=== PATIENT | female | born 1990 | race Hispanic/Latino ===

== ENCOUNTER 2019-04-15 08:58 | Emergency (ER) | payer MEDICAID ==
[2019-04-15 10:04] LABS: APPEARANCE,URINE CLOUDY (CLEAR); BILIRUBIN,URINE NEGATIVE (NEGATIVE); GLUCOSE, URINE (UA) NEGATIVE (NEGATIVE); KETONES,URINE NEGATIVE (NEGATIVE); LEUKOCYTE ESTERASE ,URINE LARGE (NEGATIVE); NITRATE,URINE NEGATIVE (NEGATIVE); OCCULT BLOOD,URINE LARGE (NEGATIVE); PROTEIN,URINE 100 mg/dL (NEGATIVE); UROBILINOGEN,URINE 0.2 mg/dL (0.2-1.0)
[2019-04-15 10:06] LABS: COLOR,URINE DARK YELLOW (YELLOW); HCG,QUAL RESULT NEGATIVE (NEGATIVE)
[2019-04-15 10:34] LABS: BACTERIA,URINE Moderate /HPF (None Seen); RBC,URINE TNTC /HPF (0-1); WBC,URINE TNTC /HPF (0-1)
[2019-04-15] MEDS ORDERED: CEFTRIAXONE SODIUM 1 GM ONE (10:52)
[2019-04-15] MEDS ORDERED: SODIUM CHLORIDE 0.9% 50 ML IV ONE (10:52)
[2019-04-15] MEDS ORDERED: KETOROLAC TROMETHAMINE 30MG/ML ONE (12:54)
[2019-04-15] MEDS ORDERED: DEXAMETHASONE SOD PHOSPHATE 10MG/ML 1ML VIAL ONE (12:54)
[2019-04-15] MEDS ORDERED: MORPHINE SULFATE 4 MG/1ML SYG ONE (13:49)
== END 2019-04-15 14:06 | disposition home or self-care (01) ==
LOC: EDH 08:58
DX: M54.41 Lumbago with sciatica, right side (principal); N39.0 Urinary tract infection, site not specified
CPT/HCPCS: 72100; 81001; 81025; 87088; 96374; 96375; 99285; J0696; J1100; J1885; J2270

== ENCOUNTER 2020-10-08 22:53 | Emergency (ER) | payer MEDICAID ==
[2020-10-08] MEDS ORDERED: ACETAMINOPHEN EXTRA STRENGTH 500 MG TABLET ONE (23:07)
[2020-10-08 23:26] LABS: BASOPHILS % (AUTO) 0.4 % (0.0-5.0); EOSINOPHILS % (AUTO) 0.8 % (0.0-8.0); HEMATOCRIT 34.4 % (36-48); LYMPHOCYTES % (AUTO) 19.9 % (21.0-51.0); MEAN CORPUSCULAR HEMOGLOBIN 30.1 pg (27.0-33.0); MEAN CORPUSCULAR HGB CONC 35.2 g/dL (32.0-36.0); MEAN CORPUSCULAR VOLUME 85.6 fL (79-99); MONOCYTES % (AUTO) 8.3 % (3.0-13.0); NEUTROPHILS % (AUTO) 70.3 % (40.0-77.0); PLATELET COUNT (AUTO) 227 K/uL (130-400); RED BLOOD CELL COUNT(AUTO) 4.02 MIL/uL (4.00-5.50); WHITE BLOOD COUNT (AUTO) 9.3 K/uL (4.8-10.8)
[2020-10-08 23:27] LABS: APPEARANCE,URINE Cloudy (CLEAR); BILIRUBIN,URINE Negative (NEGATIVE); COLOR,URINE Yellow (YELLOW); GLUCOSE, URINE (UA) Negative (NEGATIVE); KETONES,URINE Negative (NEGATIVE); LEUKOCYTE ESTERASE ,URINE Moderate (NEGATIVE); NITRATE,URINE Negative (NEGATIVE); OCCULT BLOOD,URINE Negative (NEGATIVE); PROTEIN,URINE Negative (NEGATIVE)
[2020-10-08 23:34] LABS: CREATININE 0.6 mg/dL (0.5-1.5)
[2020-10-08 23:51] LABS: BACTERIA,URINE Few /HPF (None Seen); RBC,URINE 0-1 /HPF (0-1); SQUAMOUS EPITHELIAL CELL,UR Many /HPF (0-2)
[2020-10-08 23:59] LABS: ALBUMIN 3.2 g/dL (3.5-5.0); BILIRUBIN,TOTAL 0.2 mg/dL (0.2-1.0); TOTAL PROTEIN, SERUM 7.7 g/dL (6.0-8.3)
== END 2020-10-09 00:48 | disposition home or self-care (01) ==
LOC: EDH 22:53
DX: O20.0 Threatened abortion (principal); Z3A.13 13 weeks gestation of pregnancy; Z88.6 Allergy status to analgesic agent; Z72.0 Tobacco use
CPT/HCPCS: 36415; 76801; 76805; 80053; 81001; 83690; 84702; 85025; 86900; 86901; 87088

== ENCOUNTER 2021-03-22 13:11 | Observation (INO) | payer MEDICAID ==
[~2021-03-22] VITALS: Ht 172.7 cm; Wt 165.6 kg
[2021-03-22 14:06] LABS: BASOPHILS % (AUTO) 0.3 % (0.0-5.0); EOSINOPHILS % (AUTO) 0.6 % (0.0-8.0); HEMATOCRIT 30.9 % (36-48); LYMPHOCYTES % (AUTO) 13.8 % (21.0-51.0); MEAN CORPUSCULAR HEMOGLOBIN 27.9 pg (27.0-33.0); MEAN CORPUSCULAR VOLUME 84.4 fL (79-99); MONOCYTES % (AUTO) 6.7 % (3.0-13.0); NEUTROPHILS % (AUTO) 77.9 % (40.0-77.0); PLATELET COUNT (AUTO) 236 K/uL (130-400); RED BLOOD CELL COUNT(AUTO) 3.66 MIL/uL (4.00-5.50); RED CELL DISTRIBUTION WIDTH 12.8 % (11.0-15.5)
[2021-03-22 14:19] LABS: APPEARANCE,URINE Cloudy (CLEAR); BILIRUBIN,URINE Negative (NEGATIVE); COLOR,URINE Yellow (YELLOW); GLUCOSE, URINE (UA) Negative (NEGATIVE); KETONES,URINE Negative (NEGATIVE); LEUKOCYTE ESTERASE ,URINE Trace (NEGATIVE); NITRATE,URINE Negative (NEGATIVE); OCCULT BLOOD,URINE Trace (NEGATIVE); PROTEIN,URINE Negative (NEGATIVE)
[2021-03-22 14:20] LABS: ALBUMIN 2.3 g/dL (3.5-5.0); BILIRUBIN,TOTAL 0.3 mg/dL (0.2-1.0); CREATININE 0.7 mg/dL (0.5-1.5); POTASSIUM 3.8 mmol/L (3.5-5.1); TOTAL PROTEIN, SERUM 6.9 g/dL (6.0-8.3); URIC ACID 3.8 mg/dL (2.6-7.2)
[2021-03-22 14:26] LABS: INR 0.96 (0.85-1.15); PROTHROMBIN TIME 10.5 SEC (9.6-11.6)
[2021-03-22 14:28] LABS: PARTIAL THROMBOPLASTIN TIME 24.3 SEC (26.3-35.5)
[2021-03-22 14:43] LABS: BACTERIA,URINE Few /HPF (None Seen); RBC,URINE 0-1 /HPF (0-1)
[2021-03-22 15:49] LABS: FIBRINOGEN > 450 mg/dL (180-350)
== END 2021-03-22 14:55 | disposition home or self-care (01) ==
LOC: LDH 13:11
PROVIDERS: ADMIT Specialist; ATTEND Specialist
DX: O26.893 Other specified pregnancy related conditions, third trimester (principal); R60.0 Localized edema; M79.89 Other specified soft tissue disorders; Z3A.37 37 weeks gestation of pregnancy
CPT/HCPCS: 36415; 59025; 76819; 80053; 81001; 84550; 85025; 85384; 85610; 85730; G0378; G0379

== ENCOUNTER 2021-03-27 13:20 | Inpatient (IN) | payer MEDICAID ==
[~2021-03-27] VITALS: Ht 172.7 cm; Wt 165.6 kg
[2021-03-27] MEDS ORDERED: LACTATED RINGERS 1000ML 1,000 ML IV PRN (14:30)
[2021-03-27 15:02] LABS: BASOPHILS % (AUTO) 0.4 % (0.0-5.0); EOSINOPHILS % (AUTO) 0.5 % (0.0-8.0); HEMATOCRIT 29.2 % (36-48); MEAN CORPUSCULAR HGB CONC 33.2 g/dL (32.0-36.0); MEAN CORPUSCULAR VOLUME 84.4 fL (79-99); MONOCYTES % (AUTO) 6.8 % (3.0-13.0); NEUTROPHILS % (AUTO) 78.8 % (40.0-77.0); PLATELET COUNT (AUTO) 229 K/uL (130-400); RED BLOOD CELL COUNT(AUTO) 3.46 MIL/uL (4.00-5.50); WHITE BLOOD COUNT (AUTO) 10.6 K/uL (4.8-10.8)
[2021-03-27 15:20] LABS: INR 0.95 (0.85-1.15); PROTHROMBIN TIME 10.4 SEC (9.6-11.6)
[2021-03-27 15:21] LABS: PARTIAL THROMBOPLASTIN TIME 24.4 SEC (26.3-35.5)
[2021-03-27 15:24] LABS: ALBUMIN 2.3 g/dL (3.5-5.0); BILIRUBIN,TOTAL 0.3 mg/dL (0.2-1.0); CREATININE 0.7 mg/dL (0.5-1.5); POTASSIUM 3.8 mmol/L (3.5-5.1); TOTAL PROTEIN, SERUM 6.7 g/dL (6.0-8.3); URIC ACID 4.6 mg/dL (2.6-7.2)
[2021-03-27] MEDS ORDERED: NALOXONE HCL 0.4 MG/1 ML ML IV PRN (16:00)
[2021-03-27] MEDS ORDERED: ROPIVACAINE 0.2% 100ML VIAL 100 ML EP SCH (16:00)
[2021-03-27] MEDS ORDERED: LACTATED RINGERS 500 ML 500 ML IV PRN (16:00)
[2021-03-27] MEDS ORDERED: EPHEDRINE SULFATE 50 MG/ML AMPULE IVP PRN (16:00)
[2021-03-27] MEDS ORDERED: MEPERIDINE-PF 50 MG/ML SYG IVP PRN (16:00)
[2021-03-27] MEDS ORDERED: PROMETHAZINE HCL 25 MG/ML 1ML AMPULE IM PRN (16:00)
[2021-03-27 16:09] LABS: APPEARANCE,URINE Clear (CLEAR); BILIRUBIN,URINE Negative (NEGATIVE); COLOR,URINE Yellow (YELLOW); GLUCOSE, URINE (UA) Negative (NEGATIVE); KETONES,URINE Negative (NEGATIVE); LEUKOCYTE ESTERASE ,URINE Trace (NEGATIVE); NITRATE,URINE Negative (NEGATIVE); OCCULT BLOOD,URINE Trace (NEGATIVE); PH,URINE 6.5 (5.0-8.0); PROTEIN,URINE Negative (NEGATIVE)
[2021-03-27 16:19] LABS: BACTERIA,URINE Few /HPF (None Seen)
[2021-03-27 16:20] LABS: SQUAMOUS EPITHELIAL CELL,UR Moderate /HPF (0-2)
[2021-03-27 16:21] LABS: MUCUS,URINE Few LPF (None Seen)
[2021-03-28] MEDS ORDERED: OXYTOCIN-LR 20 UNITS/1000 ML 1,000 ML IV SCH (05:00)
[2021-03-28] MEDS ORDERED: FENTANYL CITRATE PF 50 MCG/1 ML 2ML VIAL ONE ×3 (11:41→23:02)
[2021-03-28] MEDS ORDERED: CEFAZOLIN SODIUM 1 GM VIAL ONE (21:53)
[2021-03-28] MEDS ORDERED: LACTATED RINGERS 1000ML 1,000 ML IV SCH (22:00)
[2021-03-28] MEDS ORDERED: CEFAZOLIN SODIUM 1 GM VIAL IVP PRN (22:00)
[2021-03-28] MEDS ORDERED: LIDOCAINE 2%-EPI 1:200,000 20 ML VIAL IJ ONE (22:15)
[2021-03-28] MEDS ORDERED: CEFAZOLIN SODIUM 1 GM VIAL IVP ONE (22:35)
[2021-03-28] MEDS ORDERED: KETAMINE 50MG/ML SYRINGE 50 MG/ML DISP.SYRIN IV ONE (22:45)
[2021-03-28] MEDS ORDERED: ROCURONIUM 10MG/1ML SYR 10 MG/ML ML ONE (22:56)
[2021-03-28] MEDS ORDERED: OXYTOCIN 10 USP UNITS/ML ONE ×2 (23:00→23:06)
[2021-03-28] MEDS ORDERED: MIDAZOLAM HCL 1 MG/ML 2ML VIAL ONE (23:01)
[2021-03-28] MEDS ORDERED: ONDANSETRON 4MG INJ ONE (23:19)
[2021-03-28] MEDS ORDERED: MEPERIDINE-PF 50 MG/ML SYG ONE (23:27)
[2021-03-28] MEDS ORDERED: FENTANYL CITRATE PF 50 MCG/1 ML 5ML AMP IV ONE (23:29)
[2021-03-28] MEDS ORDERED: NEOSTIGMINE 5MG/5ML SYR IV ONE (23:30)
[2021-03-28] MEDS ORDERED: GLYCOPYRROLATE 1 MG/5 ML SYRINGE ONE (23:30)
[2021-03-29] VITALS (7 sets, daily range): BP systolic 105–139; BP diastolic 58–79
[2021-03-29] MEDS ORDERED: 0.9%NACL 10ML VIAL IVP PRN
[2021-03-29] MEDS ORDERED: OXYTOCIN-LR 20 UNITS/1000 ML 1,000 ML IV PRN
[2021-03-29] MEDS ORDERED: HYDROMORPHONE PCA 10 MG/50 ML 50 ML IV PRN
[2021-03-29] MEDS ORDERED: PROMETHAZINE HCL 25 MG/ML 1ML AMPULE IM PRN
[2021-03-29] MEDS ORDERED: MEPERIDINE-PF 75 MG/ML SYG IM PRN
[2021-03-29] MEDS ORDERED: FENTANYL CITRATE PF 50 MCG/1 ML 2ML VIAL ONE ×2 (00:07→00:25)
[2021-03-29] MEDS ORDERED: MEPERIDINE-PF 75 MG/ML SYG ONE (01:31)
[2021-03-29] MEDS ORDERED: PREN-18 PO (03:11)
[2021-03-29] MEDS: CEFAZOLIN 3GM /D5W 100ML 100 ML IV SCH ×2 (07:05→13:55)
[2021-03-29] MEDS: DEXTROSE 5 %-0.45 % NACL 1,000 ML IV PRN ×2 (07:09→12:47)
[2021-03-29 07:16] LABS: HEPATITIS Bs ANTIGEN SCREEN P Negative (Negative)
[2021-03-29 11:38] LABS: HEMATOCRIT 25.4 % (36-48); MEAN CORPUSCULAR HEMOGLOBIN 27.5 pg (27.0-33.0); MEAN CORPUSCULAR HGB CONC 32.3 g/dL (32.0-36.0); MEAN CORPUSCULAR VOLUME 85.2 fL (79-99); RED BLOOD CELL COUNT(AUTO) 2.98 MIL/uL (4.00-5.50); RED CELL DISTRIBUTION WIDTH 13.1 % (11.0-15.5); WHITE BLOOD COUNT (AUTO) 11.9 K/uL (4.8-10.8)
[2021-03-29] MEDS ORDERED: HYDROCODONE/ACETAMINOPHEN 5/325 MG TAB PO PRN (12:30)
[2021-03-29] MEDS ORDERED: BISACODYL 10 MG SUPP.RECT RC PRN (12:30)
[2021-03-29] MEDS ORDERED: ACETAMINOPHEN WITH CODEINE 1 TAB TAB PO PRN (12:30)
[2021-03-29] MEDS ORDERED: ACETAMINOPHEN 500 MG TABLET PO PRN (12:30)
[2021-03-29] MEDS ORDERED: MEASLES/MUMPS/RUBELLA VACCINE, LIVE 0.5 ML/VIAL SQ SCH (12:30)
[2021-03-29] MEDS ORDERED: LANOLIN 30GM OINTMENT TP PRN (12:30)
[2021-03-29] MEDS ORDERED: DIPH,PERTUSS(ACELL),TET VAC/PF 0.5 ML VIAL IM SCH (12:30)
[2021-03-29] MEDS ORDERED: IBUPROFEN 600 MG TABLET ONE (12:37)
[2021-03-29] MEDS ORDERED: DOCUSATE SODIUM 100 MG CAP PO ONE (12:37)
[2021-03-29] MEDS ORDERED: SIMETHICONE 80 MG TAB.CHEW ONE (12:37)
[2021-03-29] MEDS ORDERED: PHARMACY COMMUNICATION MISC SCH (13:00)
[2021-03-29] MEDS: SIMETHICONE 80 MG TAB.CHEW PO PRN ×2 (18:55→20:19)
[2021-03-29] MEDS: DOCUSATE SODIUM 100 MG CAP PO SCH (20:19)
[2021-03-30] MEDS: IBUPROFEN 600 MG TABLET PO PRN ×2 (03:04→09:28)
[2021-03-30 03:10] VITALS: BP 121/76
[2021-03-30 07:22] VITALS: BP 126/71
[2021-03-30] MEDS: DOCUSATE SODIUM 100 MG CAP PO SCH (09:27)
[2021-03-30] MEDS: SIMETHICONE 80 MG TAB.CHEW PO PRN (09:27)
[2021-03-30 11:48] VITALS: BP 124/86
== END 2021-03-30 13:35 | disposition home or self-care (01) | DRG 540 ==
LOC: OBSVTOIN 13:20 → LDH 13:20 → WSH 03-29 02:30
PROVIDERS: ADMIT Specialist; ATTEND Specialist
PROC: 3E0234Z Introduction of Serum, Toxoid and Vaccine into Muscle, Percutaneous Approach (ICD-10-PCS; 2021-03-28)
PROC: 3E0134Z Introduction of Serum, Toxoid and Vaccine into Subcutaneous Tissue, Percutaneous Approach (ICD-10-PCS; 2021-03-28)
PROC: 10D00Z1 Extraction of Products of Conception, Low, Open Approach (ICD-10-PCS; principal; 2021-03-28 22:30)
DX: O14.94 Unspecified pre-eclampsia, complicating childbirth (principal); E66.01 Morbid (severe) obesity due to excess calories; O62.2 Other uterine inertia; Z37.0 Single live birth; Z3A.38 38 weeks gestation of pregnancy; Z88.8 Allergy status to other drugs, medicaments and biological substances; Z23 Encounter for immunization; O99.214 Obesity complicating childbirth
CPT/HCPCS: 36415; 59510; 76805; 76819; 80053; 81001; 84550; 85025; 85027; 85384; 85610; 85730; 86592; 86850; 86900; 86901; 87340; 90707; 90715; A4314; G0378; J0690; J2175; J2250; J2405; J2550; J2590; J2710; J2795; J3010; J3490; J7120

== ENCOUNTER 2021-04-03 14:20 | Observation (INO) | payer MEDICAID ==
[~2021-04-03] VITALS: Ht 172.7 cm; Wt 161.9 kg
[~2021-04-03 14:20] MED LIST: PREN-18 PO
[2021-04-03 15:59] LABS: APPEARANCE,URINE Clear (CLEAR); BILIRUBIN,URINE Negative (NEGATIVE); COLOR,URINE Yellow (YELLOW); GLUCOSE, URINE (UA) Negative (NEGATIVE); KETONES,URINE Negative (NEGATIVE); LEUKOCYTE ESTERASE ,URINE Negative (NEGATIVE); NITRATE,URINE Negative (NEGATIVE); OCCULT BLOOD,URINE Negative (NEGATIVE); PH,URINE 7.5 (5.0-8.0); PROTEIN,URINE Negative (NEGATIVE)
[2021-04-03 16:05] LABS: BASOPHILS % (AUTO) 0.6 % (0.0-5.0); EOSINOPHILS % (AUTO) 3.5 % (0.0-8.0); HEMATOCRIT 23.6 % (36-48); LYMPHOCYTES % (AUTO) 15.4 % (21.0-51.0); MEAN CORPUSCULAR HEMOGLOBIN 27.6 pg (27.0-33.0); MEAN CORPUSCULAR HGB CONC 31.4 g/dL (32.0-36.0); MEAN CORPUSCULAR VOLUME 88.1 fL (79-99); MONOCYTES % (AUTO) 7.2 % (3.0-13.0); NEUTROPHILS % (AUTO) 72.7 % (40.0-77.0); PLATELET COUNT (AUTO) 294 K/uL (130-400); RED BLOOD CELL COUNT(AUTO) 2.68 MIL/uL (4.00-5.50); RED CELL DISTRIBUTION WIDTH 13.7 % (11.0-15.5); WHITE BLOOD COUNT (AUTO) 7.2 K/uL (4.8-10.8)
[2021-04-03 16:13] LABS: CREATININE 0.7 mg/dL (0.5-1.5); POTASSIUM 3.8 mmol/L (3.5-5.1)
[2021-04-03 16:15] LABS: INR 1.02 (0.85-1.15); PROTHROMBIN TIME 11.1 SEC (9.6-11.6)
[2021-04-03 16:16] LABS: PARTIAL THROMBOPLASTIN TIME 23.6 SEC (26.3-35.5)
[2021-04-03 16:18] LABS: ALBUMIN 2.2 g/dL (3.5-5.0); BILIRUBIN,TOTAL 0.3 mg/dL (0.2-1.0); TOTAL PROTEIN, SERUM 6.1 g/dL (6.0-8.3); URIC ACID 5.1 mg/dL (2.6-7.2)
== END 2021-04-03 17:45 | disposition home or self-care (01) ==
LOC: LDH 14:20
PROVIDERS: ADMIT Specialist; ATTEND Specialist
DX: O26.893 Other specified pregnancy related conditions, third trimester (principal); R03.0 Elevated blood-pressure reading, without diagnosis of hypertension; H53.8 Other visual disturbances; O99.213 Obesity complicating pregnancy, third trimester; E66.01 Morbid (severe) obesity due to excess calories; Z3A.39 39 weeks gestation of pregnancy; Z79.899 Other long term (current) drug therapy
CPT/HCPCS: 36415; 80053; 81003; 84550; 85025; 85384; 85610; 85730; G0378 ×3

== ENCOUNTER 2025-03-05 19:32 | Emergency (ER) | payer SELFPAY ==
[~2025-03-05] VITALS: Ht 172.7 cm; Wt 156.5 kg
--- NOTE | 2025-03-05 19:35 | NUR ---
UA CUP PROVIDED
--- NOTE | 2025-03-05 21:02 | ERN ---
ED Note History of Present Illness Stated Complaint: NUMBNESS BILATERAL LEGS Chief Complaint: Numbness Time Seen by MD: 19:53 Dictation: This is a 34-year-old extremely obese female who is over 400 lb came into the emergency room complaining of reduced feeling of the legs with a mild numbness. She was concerned as she was Googling that her potassium may be low as she has been on a Mediterranean diet to lose weight. She denied any blurred vision diplopia motor weakness or seizure activity. No facial asymmetry she recently saw her eye doctor and had her contacts and everything changed and there was and no issue with the vision. Patient denied any seizure activity weakness or tingling. She basically indicated that a few months ago her hemoglobin A1c was 6.3 and she weighed 408 lb when she began the diet and lost to 345 lb. She also reported that she had a fatty liver Temperature 98 pulse 83 respirations 18 blood pressure 163/88 with a pulse oximetry of 98% on room air Allergies: Coded Allergies: ketorolac (Unverified Allergy, Unknown, itching, 03/22/21) Home Meds Reported Medications Vit W-Ca,Fe,FA(<1 mg) ( Formula) 1 Each Tablet, 1 EACH PO AD, TAB 03/29/21 Past Medical History Past Medical History: Other Additional Past Medical Hx: FATTY LIVER Surgical History: Cholecystectomy, Family History: Negative Social History: Negative RN Note Reviewed/Agreed w/PFSH: Yes Review of System Dictation Constitutional: Negative for fever,chills, and weight loss Eyes: Negative for injury, pain,redness, and discharge ENT: Negative for injury,pain or swelling Cardiovascular: Negative for chest pain, palpitations, and edema Respiratory: Negative for shortness of breath, cough, and wheezing, Abdomen/GI: Negative for abdominal pain, nausea, vomiting, diarrhea, and constipation Back: Negative for injury and pain : Negative for injury, bleeding and discharge MS/Extremity: Negative for injury and deformity Skin: Negative for rash, and discoloration Neuro: Negative for headache, weakness, , tingling, and seizure positive for mild numbness of both lower extremities Psych: Negative for suicide ideation, homicidal ideation, and hallucinations Initial Vital Sign VS Vital Signs Date Time Temp Pulse Resp B/P (MAP) Pulse Ox O2 Delivery O2 Flow Rate FiO2 03/05/25 19:34 98.1 83 18 163/88 98 Room Air 03/05/25 19:45 0 21 Physical Exam Dictation General: awake, alert, NAD extremely obese Head/Face: Normocephalic, atraumatic Eyes: PERRL, EOMI, vision at baseline ENT: oral cavity clear, TMs clear, no signs of infection Neck: Trachea midline, supple, no nuchal rigidity Cardiovascular: RRR, normal S1/S2, No MRGs, no JVD Respiratory: CTAB, no respiratory distress, No rales or wheezes Abdomen: Soft, non-tender, non-distended, normal bowel sounds, no guarding or rebound. Skin: Warm, dry, normal turgor, no rash MS/Extremity: Pulses equal, no cyanosis, neurovascular intact, FROM Neuro: COAx4, GCS 15, strength 5/5, CN 2-12 intact, normal cerebellar exam, normal gait, patient is able to feel during sensory exam Psych: Normal behavior, mood, and affect normal Extremities-trace edema without any palpable cords, Homans sign is negative Results (Laboratory/Radiology) Laboratory/Radiology Laboratory Tests Test 03/05/25 19:40 03/05/25 21:17 Urine Color LIGHT-YELLOW (YELLOW) Urine Appearance CLEAR (CLEAR) Urine pH 5.5 (5.0-8.0) Urine Specific [place] 1.011 (1.001-1.031) Urine Protein NEGATIVE mg/dL (NEGATIVE) Urine Glucose (UA) NEGATIVE mg/dL (NEGATIVE) Urine Ketones 20 mg/dL (NEGATIVE) H Urine Occult Blood SMALL (NEGATIVE) H Urine Nitrate NEGATIVE (NEGATIVE) Urine Bilirubin NEGATIVE mg/dL (NEGATIVE) Urine Urobilinogen 0.2 mg/dL (0.2-1.0) Urine Leukocyte Esterase NEGATIVE Shonna/uL Urine RBC 2-5 /HPF (0-1) H Urine WBC 0-1 /HPF (0-1) Urine Squamous Epithelial Cells RARE /HPF (0-2) Urine Bacteria None /HPF (None Seen) Urine Opiates Screen NEGATIVE (NEGATIVE) Urine Barbiturates Screen NEGATIVE (NEGATIVE) Urine Phencyclidine Screen NEGATIVE (NEGATIVE) Urine Amphetamines Screen NEGATIVE (NEGATIVE) Urine Benzodiazepines Screen NEGATIVE (NEGATIVE) Urine Cocaine Screen NEGATIVE (NEGATIVE) Urine Marijuana (THC) Screen NEGATIVE (NEGATIVE) White Blood Count 6.4 K/uL (4.8-10.8) Red Blood Count 4.18 MIL/uL (4.00-5.50) Hemoglobin 10.9 g/dL (12.0-16.0) L Hematocrit 34.8 % (36-48) L Mean Corpuscular Volume 83.3 fL (79-99) Mean Corpuscular Hemoglobin 26.1 pg (27.0-33.0) L Mean Corpuscular Hemoglobin Concent 31.3 g/dL (32.0-36.0) L Red Cell Distribution Width 13.7 % (11.0-15.5) Platelet Count 288 K/uL (130-400) Mean Platelet Volume 11.8 fL (7.5-10.5) H Immature Granulocyte % (Auto) 0.3 % (0-1) Neutrophils (%) (Auto) 72.8 % (40.0-77.0) Lymphocytes (%) (Auto) 16.5 % (21.0-51.0) L Monocytes (%) (Auto) 9.0 % (3.0-13.0) Eosinophils (%) (Auto) 0.8 % (0.0-8.0) Basophils (%) (Auto) 0.6 % (0.0-5.0) Neutrophils # (Auto) 4.7 K/uL (1.8-7.7) Lymphocytes # (Auto) 1.1 K/uL (1.0-4.8) Monocytes # (Auto) 0.6 K/uL (0.1-1.0) Eosinophils # (Auto) 0.05 K/uL (0.00-0.70) Basophils # (Auto) 0.04 K/uL (0.00-0.20) Absolute Immature Granulocyte (auto 0.02 K/uL (0-1) Nucleated Red Blood Cells 0.0 % (0.0-0.19) Sodium Level 139 mmol/L (136-145) Potassium Level 3.9 mmol/L (3.5-5.1) Chloride Level 105 mmol/L (101-111) Carbon Dioxide Level 27 mmol/L (21-32) Blood Urea Nitrogen 10 mg/dL (7-18) Creatinine 0.8 mg/dL (0.5-1.0) Glomerular Filtration Rate Calc 100 mL/min (>90) Random Glucose 122 mg/dL (70-105) H Total Calcium 9.0 mg/dL (8.5-10.1) Magnesium Level 1.80 mg/dL (1.80-2.40) Thyroid Stimulating Hormone (TSH) 1.58 uIU/mL (0.36-3.74) Human Chorionic Gonadotropin, Quant 1 mIU/mL (0-5) Labs Reviewed?: Yes ED Course ED Course Orders Procedure Category Date Status Time Cbc With Differential LAB 03/05/25 Complete 20:59 Basic Metabolic Panel LAB 03/05/25 Complete 20:59 Hcg,Quantitative LAB 03/05/25 Complete 20:59 Magnesium LAB 03/05/25 Complete 20:59 Urinalysis Profile LAB 03/05/25 Complete 20:59 Thyroid Stimulating LAB 03/05/25 Complete Hormone 20:59 Drug Screen Urine LAB 03/05/25 Complete 21:01 Ct Lumbar Spine W/O CT 03/05/25 Resulted Contrast 21:44 Vital Signs Date Time Temp Pulse Resp B/P (MAP) Pulse Ox O2 Delivery O2 Flow Rate FiO2 03/05/25 22:53 98.1 83 18 163/88 98 Room Air* 0 21 03/05/25 19:45 98.1 83 18 163/88 98 Room Air* 0 21 03/05/25 19:34 98.1 83 18 163/88 98 Room Air We will perform diagnostic labs, advanced imaging and administer medications according to the patient's complaint. Once the results are available, will review and personally interpreted the labs to rule out any acute life-threateni ng emergency the trach require immediate intervention and treatment. I will then re-evaluate the patient after treatment and diagnostic exams have return to determine whether the patient requires any further testing, can safely be discharged home or need further admission to hospital for additional treatment and evaluation. Labs reviewed CBC shows a hemoglobin of 10.9 but otherwise with a normal limits BNP 7 is normal, urinalysis is unremarkable, urine drug screen is negative. A CT scan of the lumbar spine was requested to evaluate for any pathology at the spine level and there was an inordinate delay in obtaining Results of this. 11:54 p.m.-lumbar spine CT scan results showed only facet arthropathy and bulging disc but no acute cord edema or cord compression. I had a long discussion with the patient and her and updated them on available information and I recommended that she must make an appointment with the neurologist and get further evaluation done as outpatient. They both verbalized full understanding Medical Decision Making MDM MDM: Differential diagnosis: Rationale: Tests considered and ordered secondary to shared decision making include: Previous outside records reviewed: Old ER visits. Risk of complication and/or morbidity or mortality of patient management: None Medications-Per medication reconciliation Need for hospitalization: Patient does not meet criteria for hospitalization. Need for emergency major/minor surgery: No There are no social concerns with this patient. Prescription drug management Prescriptions will include symptomatic care Patient's prior external medical records from other ER visits were reviewed by me as indicated. Prior testing and results from previous visits were reviewed. Prior tests were taken into account with medical decision making and resource utilization, independent historian/historians were used to obtain complete medical history. I independently interpreted the test that were performed, results were reviewed by me and considered findings on radiology if ordered. Medical management and examination interpretation discussions were had by me with other qualified healthcare professionals as indicated for the patient's care. Problem List Problem List: (1) Numbness of lower extremity (2) Extreme obesity (3) Lumbar radiculopathy DX & DISP Disposition: Discharge Departure Impression: Primary Impression: Numbness of lower extremity Additional Impressions: Extreme obesity, Lumbar radiculopathy Condition: Stable Additional Instructions: Patient and the caregiver have been informed of all the diagnostic tests and the imaging conducted during the today's visit to the emergency room and has verbalized understanding of the results I have personally reviewed and interpreted all diagnostic exams performed here in the ER today as well as the vital signs documented by the nursing staff. The patient is now being discharged to home and should follow up with the primary care physician or the specialist as directed by the ER staff. Follow-up with primary care provider in 1 to 2 days. Take medications as directed here in the emergency room. Okay to continue home medications unless otherwise discussed during your visit in the emergency room today. Return to your nearest emergency room if symptoms worsen or if there is no improvement. Call 911 if you need immediate assistance. Take Tylenol or Motrin [id number] as needed and if no contraindications are present. Increase oral hydration. A wound culture or urine culture was ordered here in the emergency room department please follow-up with primary care provider and advise them to get repeat ports from our facility. If you had any Jack wrap/splints that were applied here, please do not remove them until you see your primary care or specialty. Referrals: SELF,REFERRAL (PCP) SETH LAWSON MD Mar 05, 2025 21:02
[2025-03-05 21:13] LABS: APPEARANCE,URINE CLEAR (CLEAR); GLUCOSE, URINE (UA) NEGATIVE (NEGATIVE); LEUKOCYTE ESTERASE ,URINE NEGATIVE Leu/uL (NEGATIVE); NITRATE,URINE NEGATIVE (NEGATIVE); OCCULT BLOOD,URINE SMALL (NEGATIVE)
[2025-03-05 21:15] LABS: ADD UA MICROSCOPIC YES
[2025-03-05 21:17] LABS: SQUAMOUS EPITHELIAL CELL,UR RARE /HPF (0-2)
[2025-03-05 21:19] LABS: AMPHET/METH SCREEN,URINE NEGATIVE (NEGATIVE); BARBITURATE SCREEN, URINE NEGATIVE (NEGATIVE); CANNABINOID SCREEN,URINE NEGATIVE (NEGATIVE); COCAINE SCREEN,URINE NEGATIVE (NEGATIVE)
[2025-03-05 21:33] LABS: IMMATURE GRANULOCYTE ABSOLUTE 0.02 K/uL (0-1); NUCLEATED RED BLOOD CELLS 0.0 % (0.0-0.19); PLATELET COUNT (AUTO) 288 K/uL (130-400); RED BLOOD CELL COUNT(AUTO) 4.18 MIL/uL (4.00-5.50); RED CELL DISTRIBUTION WIDTH 13.7 % (11.0-15.5); WHITE BLOOD COUNT (AUTO) 6.4 K/uL (4.8-10.8)
[2025-03-05 21:42] LABS: CREATININE 0.8 mg/dL (0.5-1.0); GLOMERULAR FILTR. RATE CALC 100.0 mL/min (>90); GLUCOSE,RANDOM 122.0 mg/dL (70-105); SODIUM SERUM 139.0 mmol/L (136-145); UREA NITROGEN, BLOOD 10.0 mg/dL (7-18)
--- NOTE | 2025-03-05 21:53 | NUR ---
PENDING TEST RESULTS FOR CT EXAM.
[2025-03-05 21:55] LABS: HCG,QUANTITATIVE 1.0 mIU/mL (0-5)
--- NOTE | 2025-03-05 23:30 | HMCIMG ---
EXAM: CT Lumbar Spine Without IV contrast. CLINICAL HISTORY: Patient presents with bilateral lower extremity numbness. TECHNIQUE: Axial computed tomography images of the lumbar spine without intravenous contrast. Sagittal and coronal reformatted images were generated. COMPARISON: None provided. FINDINGS: ALIGNMENT: Bony alignment is anatomic. The first non-rib bearing vertebrae secondary to the L1 vertebral body. DISCS/DEGENERATIVE CHANGES: Diffuse disc bulge at the L5-S1 level indenting the anterior thecal sac. Facet joint arthropathy at the L4-L5 and L5-S1 levels. BONES: No acute fracture or aggressive appearing osseous lesion. SOFT TISSUES: The soft tissues are unremarkable. Right adrenal nodule may reflect an adenoma; however, this would be better characterized with contrast-enhanced CT or MR imaging with adrenal protocol. IMPRESSION: Diffuse disc bulge at L5-S1 indenting the anterior thecal sac. Facet joint arthropathy at L4-L5 and L5-S1. Recommend MRI lumbar spine for further evaluation. No acute lumbar spine fracture. /Bypro
[2025-03-06 00:42] VITALS: BP 154/86; PULSE 80; RESP 18; TEMP 98.4; O2SAT 98
== END 2025-03-06 00:45 | disposition home or self-care (01) ==
LOC: EDH 19:32
DX: R20.0 Anesthesia of skin (principal); E66.01 Morbid (severe) obesity due to excess calories; M47.819 Spondylosis without myelopathy or radiculopathy, site unspecified; R10.2 Pelvic and perineal pain; Z90.49 Acquired absence of other specified parts of digestive tract; Z68.43 Body mass index [BMI] 50.0-59.9, adult
CPT/HCPCS: 36415; 72131; 80048; 80305; 81001; 83735; 84443; 84702; 85025; 99284